=== PATIENT | male | born 1975 | race Caucasian/White ===

== ENCOUNTER 2019-10-04 10:37 | Emergency (ER) | payer BC ==
[~2019-10-04] VITALS: Ht 175.3 cm; Wt 68.0 kg
[2019-10-04 11:19] LABS: ABSOLUTE NEUTROPHILS 2.8 thou/uL (1.4-8.2); BASOPHILS 0.2 % (0.0-2.0); HEMATOCRIT 39.8 % (42.0-52.0); HEMOGLOBIN 13.7 gm/dL (14.0-18.0); LYMPHOCYTES 30.5 % (24.0-44.0); MCHC 34.5 g/dL (28.0-37.0); MCV 86.8 fL (80.0-100.0); MONOCYTES 8.5 % (1.0-8.0); PLATELET COUNT 205 thou/uL (150-400); POLYS 59.8 % (36.0-66.0); RBC 4.58 mil/uL (4.50-6.00); WBC 4.6 thou/uL (4.0-11.0)
[2019-10-04 11:34] LABS: ANION GAP 10 mmol/L (7-16); BUN 15 mg/dL (7-18); CALCIUM 8.7 mg/dL (8.5-10.1); CHLORIDE 104 mmol/L (98-107); CO2 25 mmol/L (21-32); GLUCOSE 140 mg/dL (74-106); POTASSIUM 3.5 mmol/L (3.5-5.1); SODIUM 139 mmol/L (136-145)
[2019-10-04 11:44] LABS: ALBUMIN 3.6 g/dL (3.4-5.0); DIRECT BILIRUBIN 0.2 mg/dL (<0.1-0.3); LIPASE 69 U/L (73-393); SGOT 17 U/L (15-37); SGPT 25 U/L (30-65); TOTAL PROTEIN 6.3 g/dL (6.4-8.2); TROPONIN-I <0.06 ng/mL (<0.06)
[2019-10-04 13:23] LABS: URINE BILIRUBIN NEGATIVE (Negative); URINE BLOOD NEGATIVE (Negative); URINE CLARITY CLEAR; URINE COLOR YELLOW; URINE GLUCOSE-RANDOM* NEGATIVE (Negative); URINE KETONES 1+ (Negative); URINE LEUKOCYTES-REFLEX NEGATIVE (Negative); URINE NITRITE-REFLEX NEGATIVE (Negative); URINE PROTEIN (DIPSTICK) NEGATIVE (Negative); URINE UROBILINOGEN 0.2 E.U./dl (0.2-1.0)
[2019-10-04 13:29] LABS: AMP/METHAMP Negative (Negative); BARBITURATES Negative (Negative); BENZODIAZEPINES Negative (Negative); COCAINE Negative (Negative); METHADONE Negative (Negative); OPIATES Negative (Negative); PCP Negative (Negative)
[2019-10-04 15:38] VITALS: BP 111/64
--- NOTE | 2019-10-04 16:16 | EKG ---
[place] [address] [facility] [place] [address] ELECTROCARDIOGRAM REPORT Name: MCCLOUDSHELDON Room #: DEP Ratna#: [id number] Admission: 10/04/19 Attend Phys: Discharge: 10/04/19 Date of : 71 Report #: [id number] THIS REPORT FOR: //name// [facility] ED Test Date: 2019-10-04 Test Time: 10:58:39 Pat Name: SHELDON MCCLOUD Department: Room: Gender: Medical Equipment Repairer: [id number] : 1975 Requested By: Rajinder Thompson Order Number: [id number] MD: Xu Carrillo Measurements Intervals [place] Rate: 59 P: 9 UT: 139 QRS: 82 QRSD: 96 T: 6 QT: 428 QTc: 424 Interpretive Statements Sinus bradycardia Otherwise normal tracing No previous ECG available for comparison Electronically Signed On 10-04-2019 16:16:19 BUSINESS PLANNING ANALYST by Xu Carrillo [email or web address] <ELECTRONICALLY SIGNED> By: Xu Carrillo MD, [facility] 10/04/19 1616 1058 1058 Xu Carrillo MD, FACC /EPI
== END 2019-10-04 15:39 | disposition home or self-care (01) ==
LOC: ER 10:37
PROVIDERS: Emergency Medicine
DX: R55 Syncope and collapse (principal); I95.9 Hypotension, unspecified